=== PATIENT | female | born 1975 | race Caucasian/White ===

== ENCOUNTER 2019-06-03 08:48 | Emergency (ER) | payer MEDICAID, SELFPAY ==
[2019-06-03 08:49] VITALS: BP 137/100; PULSE 96; RESP 16; TEMP 36.3; O2SAT 96; BMI 29.8
--- NOTE | 2019-06-03 08:57 | CT_ITS ---
STUDY: CT ABDOMEN AND PELVIS WITHOUT CONTRAST REASON FOR EXAM: Female, 44 years old. Abdominal pain, nausea and diarrhea for one day with history of diverticulitis RADIATION DOSAGE (If Supplied By Facility): CTDIvol = ( 18.76 ) mGy, DLP = ( 1016.99 ) mGycm TECHNIQUE: Transaxial images were obtained from the dome of the diaphragm to the symphysis pubis without oral contrast, and without intravenous contrast. Sagittal and coronal images were reconstructed. Individualized dose optimization techniques were used for this CT. COMPARISON: 02/03/2017. FINDINGS: The visualized lung bases are unremarkable. The visualized portions of the heart are within normal limits. There is decreased attenuation of the liver consistent with steatosis. Normal gallbladder and extrahepatic biliary system. Normal spleen. Normal pancreas. Normal bilateral adrenal glands. Stable size of angiolipoma in right kidney measuring 1.2 cm also visualized in prior study, with probable small focus of hemorrhage, among other etiology. Normal left kidney. Normal visualized stomach. Normal small intestine. There are multiple colonic diverticula consistent with diverticulosis. Mild probable proctitis with infiltration around the rectum There is non-visualization of the appendix. Normal abdominal aorta. Normal inferior vena cava. Normal retroperitoneum. Normal urinary bladder. Right-sided dermoid ovarian cyst is again visualized measuring 3.1 cm. Normal abdominal wall. There are mild degree of diffuse degenerative changes of the visualized lumbar spine. CT/Abdomen/Pelvis without Cont IMPRESSION: Mild proctitis. Uncomplicated colonic diverticulosis. 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 Correlation with patient's symptoms and history is recommended. Urological consultation is recommended. Electronically Signed: Jaspal De La Rosa MD at 10:30 EDT Tel [phone], Service support ,
[2019-06-03] MEDS: 0.9% Normal Saline 1,000 ML 125 ML IV (09:15)
[2019-06-03] MEDS: Dicyclomine 20 MG/2 ML Vial IM (09:15)
[2019-06-03 09:26] LABS: Absolute Lymphocyte Count 1.33 X10^3/uL (0.83-4.51); Absolute Neutrophil Count 7.3 X10^3/uL (2.0-7.7); Basophil# 0.07 X10^3/uL; Basophil% 0.7 % (0-1); Eosinophil# 0.15 X10^3/uL; Eosinophils% 1.6 % (0-5); Hematocrit 42.2 % (37-47); Hemoglobin 14.5 g/dL (12.0-15.0); Lymphocyte # 1.33 X10^3/ul (4.0); Lymphocyte % 14.2 % (19-41); Mean Corp Hgb Conc 34.4 g/dL (32-36); Mean Corpuscular Hgb 30.9 pg (27.0-32.0); Mean Corpuscular Volume 89.8 fL (81-99); Mean Platelet Vol. 9.2 fl (6.2-12.0); Monocyte# 0.52 X10^3/uL; Monocyte% 5.6 % (0-10); NRBC Flagged by Analyzer 0 % (0-5); Neutrophil # 7.25 X10^3/uL (2.7-7.7); Neutrophil % 77.5 % (47-70); Platelet Count 304 K/mm3 (150-450); RBC Distribution Width CV 11.9 % (11.6-14.6); RBC Distribution Width SD 38.4 fl (35.1-43.9); White Blood Count 9.4 K/mm3 (4.4-11.0)
[2019-06-03 09:27] LABS: Mucous, Urine 0 SEEN /hpf (<or=2+); Red Blood Cells-Urine 0 SEEN /hpf (0-5)
[2019-06-03 09:28] LABS: Color, Urine Yellow (Yellow); Glucose, Dipstick Normal (Normal); Ketone-Dipstick Negative (Negative); Leukocyte Esterase-Dipstick 500 /ul (Negative); Nitrite-Dipstick Negative (Negative); Occult Blood-Urine 10 /ul (Negative); Protein-Dipstick Negative (Negative); Urine Bilirubin Dipstick Negative (Negative); Urine Clarity Cloudy (Clear); Urine Urobilinogen Normal (Normal)
[2019-06-03 09:33] LABS: Amorphous Sediment 2+; Bacteria 3+ /hpf (None Seen); Squamous Epithelial Cells - UA 0-5 SEEN /hpf (5-10); White Blood Cells 5-10 SEEN /hpf (0-5)
[2019-06-03 09:37] LABS: AST(SGOT) 35 U/L (15-37); Alanine Aminotransfer ALT/SGPT 59 U/L (13-56); Albumin, Serum 3.9 g/dL (3.2-5.0); Alkaline Phosphatase 118 U/L (45-117); Anion Gap 6 (5-15); BUN 10 mg/dL (7-18); BUN/Creat Ratio 10.4 RATIO (10-20); Calcium,Total 9.3 mg/dL (8.5-10.1); Chloride 103 mmol/L (98-107); Creatinine, Serum 0.96 mg/dL (0.55-1.02); EST Glomerular Filtration Rate 67 mL/min (>60); Est Glom Filt Rate - Afr Amer 81 mL/min (>60); Globulin 3.8 g/dL (2.2-4.2); Glucose 109 mg/dL (74-106); Protein, Total 7.7 g/dL (6.4-8.2); Sodium Level 138 mmol/L (136-145)
[2019-06-03 09:54] LABS: Lactic Acid 1.6 mmol/L (0.4-2.0)
--- NOTE | 2019-06-03 11:22 | ED.DCSUM_ITS ---
- ER Visit Summary Date of Service: 06/03/19 Chief Complaint: [Abdominal pain and diarrhea] History of Present Illness: The patient is a 44 F [presents to the emergency department with symptoms that started around 9 AM yesterday. Patient complains of intermittent colicky abdominal pain that started yesterday. Patient states that about every half an hour she will feel like she needs to have a bowel movement and passed small amount of mucus and blood. Patient states she has a history of diverticulitis and it sort of feels like that. Her last colonoscopy was over 20 years ago. Patient has no family history of Crohn's disease or ulcerative colitis. She denies recent travel out of the country. She denies recent antibiotic usage. She is had nausea but no vomiting. She denies urinary symptoms.] Physical Examination: [HEENT-PERRLA, EOMI. Cranial nerves II through XII delio sly intact. TMs clear. Mucous membranes moist. No adenopathy. Cardiovascular-regular rate and rhythm without murmur or ectopy Lungs-clear to auscultation, chest wall stable without crepitus or subcu emphysema Abdomen-normoactive bowel sounds, soft. She has diffuse tenderness over the suprapubic region and left lower quadrant with some guarding. There is no rebound, rigidity, cranial signs. Extremities-intact ?4, normal range of motion, normal pulses, atraumatic] Test Results: [CBC with differential obtained showed a white count of 9.4, hemoglobin 14, hematocrit 42, platelets 304. Chemistries unremarkable. LFTs were normal. Other than a slightly elevated alk phos of 118 and ALT of 59. Urinalysis showed 500 leukocyte esterase and 5-10 WBCs. Patient had +[address] scan of the abdomen and pelvis was obtained without contrast and was read by radiology as mild proctitis was uncomplicated colonic diverticulosis as well as a right dermoid ovarian cyst stable from prior study measuring 3.1 cm. Patient also with right renal angiomyolipoma that stable measuring 1.2 cm but with suggestion of probable hemorrhage. Urologic consultation was advised.] Emergency Department Course and Treatment: [Patient was medicated with Bentyl and Zofran. Case was discussed with general surgeon on-call Dr. Audie Mar] who asked that I start patient on Flagyl and he will see her in the office and set up a colonoscopy. Patient also was discussed with urologist on- call who also asked to follow-up patient in the office. We attempted to collect stool for C. difficile as well as enteric pathogens and ova and parasites however patient unable to have much in the way of stool and she urinated into the sample both attempts. Will be given a stool collection kit for home to bring back to the lab. Treatment Plan: [Follow-up with general surgeon and urology. Patient will be started on Flagyl and Cipro will cover the urine as well. Patient advised to return if worsening pain, fever, persistent bloody stools, or conditions worsen anyway.] Disposition: [Discharged home stable condition] Impression: [Proctitis Abdominal pain UTI] This note was generated with [employer] dictation software. It may contain incorrect words, spelling, and punctuation that were not noted in review of the chart prior to signing ED Disposition - Plan for ED Patient: Referrals: Reuben Whitehead DO [Primary Care Provider] -
[2019-06-03 11:23] VITALS: BP 164/92; PULSE 78; RESP 16; O2SAT 99
--- NOTE | 2019-06-03 11:27 | ED.DEP ---
ED Disposition - Plan for ED Patient: Instructions: Urinary Tract Infections in Women, DIARRHEA, Unk Cause (Adult) Report Pendg Prescriptions: Dicyclomine HCl [Bentyl] 20 mg PO TIDAC #20 cap Prescription Printed Ciprofloxacin [Cipro] 500 mg PO BID #6 tab Prescription Printed metroNIDAZOLE [Flagyl] 500 mg PO Q8H #21 tab Prescription Printed Hydrocodone Bitart/Apap 5-325 [Interior 5MG-325MG] 1 tab PO Q4H PRN PRN 2 Days #14 tab PRN Reason: Pain Prescription Printed proMETHazine tablet [Phenergan] 25 mg PO Q6H PRN PRN #10 tab PRN Reason: Nausea Prescription Printed Ondansetron [Zofran Odt] 4 mg PO Q8H PRN PRN #10 tab PRN Reason: Nausea Prescription Printed Referrals: Reuben Whitehead DO [Primary Care Provider] - Audie Mar MD [STAFF PHYSICIAN] - Miguel A Fletcher MD [STAFF PHYSICIAN] - Additional Instructions: See Urologist regarding the mass on your right kidney angiolipoma
--- NOTE | 2019-06-03 12:22 | ED.RN ---
reviewed dc instructions and rx with pt questions answered. verbalized understanding. [facility] running rx. pt to waiting room for bed to med delivery.
== END 2019-06-03 12:23 | disposition home or self-care (01) ==
LOC: ED 09:09
PROVIDERS: Emergency Provider Emergency Medicine; Family Provider Student in an Organized Health Care Education/Training Program; PCP Student in an Organized Health Care Education/Training Program
DX: N39.0 Urinary tract infection, site not specified (principal); K62.89 Other specified diseases of anus and rectum; K57.30 Diverticulosis of large intestine without perforation or abscess without bleeding; D17.71 Benign lipomatous neoplasm of kidney; R10.9 Unspecified abdominal pain; Z72.0 Tobacco use; Z79.899 Other long term (current) drug therapy
CPT/HCPCS: 74176; 80053; 81001; 83605; 85025; 96360; 96361; 96372; 99283

== ENCOUNTER → 2019-06-04 08:28 | Outpatient (CLI) | payer MEDICAID, SELFPAY ==
[2019-06-03 08:49] VITALS: BMI 29.8
== END ==
PROVIDERS: Family Provider Student in an Organized Health Care Education/Training Program; PCP Student in an Organized Health Care Education/Training Program; Referring Provider Emergency Medicine; Visit Provider Emergency Medicine
DX: R19.7 Diarrhea, unspecified (principal)
CPT/HCPCS: 82274; 87493; 87506

== ENCOUNTER → 2019-06-05 14:15 | Outpatient (CLI) | payer MEDICAID, SELFPAY ==
[2019-06-03 08:49] VITALS: BMI 29.8
== END ==
PROVIDERS: Family Provider Student in an Organized Health Care Education/Training Program; PCP Student in an Organized Health Care Education/Training Program; Referring Provider Emergency Medicine; Visit Provider Emergency Medicine
DX: R19.7 Diarrhea, unspecified (principal)
CPT/HCPCS: 87177; 87209